=== PATIENT | female | born 1965 | race Caucasian/White ===

== ENCOUNTER → 2016-08-24 | Outpatient (CLI) | payer BC ==
--- NOTE | 2016-08-24 08:57 | MM ---
Reason for exam: follow-up at short interval from prior study. Last mammogram was performed 1 year and 9 months ago. History: Benign excisional biopsy of the left breast, March 2016. Reductions of both breasts, 2012. Took hormonal contraceptives for 15 years. Physical Findings: Nurse Summary: 1cm nodule in the left breast at 8 o'clock (nurse chanell). MG Diagnostic Mammo LT w CAD CC and MLO view(s) were taken of the left breast. Prior study comparison: March 11, 2016, mammogram. November 14, 2014, bilateral MG diagnostic mammo w CAD JOURDAN. January 29, 2014, bilateral MG work up mamm w CAD BILAT. There is no discrete abnormality at BB lower inner quadrant. No significant new findings when compared with previous films. These results were verbally communicated with the patient and result sheet given to the patient on 08/24/16. ASSESSMENT: Incomplete: need additional imaging evaluation, BI-RAD 0 RECOMMENDATION: Ultrasound of the left breast.
--- NOTE | 2016-08-24 09:02 | USB ---
Reason for exam: additional evaluation requested from abnormal screening. History: Benign excisional biopsy of the left breast, March 2016. Reductions of both breasts, 2012. Took hormonal contraceptives for 15 years. US Breast Limited LT Left breast ultrasound demonstrates a 0.60 x 0.80 x 0.70cm solid lesion at 8:30. No clip on mammogram, no mammographic correlation in absence of proof of biopsy, biopsy would be recommended. These results were verbally communicated with the patient and result sheet given to the patient on 08/24/16. ASSESSMENT: Suspicious, BI-RAD 4 RECOMMENDATION: Surgical consultation of the left breast. Manage patient on a clinical basis. Called with mammographic findings and has scheduled an appointment for the patient for 09/01/16 at 12:[address] Mallory. PRELIMINARY REPORT CALLED AND FAXED TO DR. MALLORY ON 06/26/16 AT 300/TP.
== END | disposition home or self-care (01) ==
LOC: RADMAMWWP 07:02
PROVIDERS: ATTEND Surgery
DX: R92.8 Other abnormal and inconclusive findings on diagnostic imaging of breast (principal)
CPT/HCPCS: 76642; G0206

== ENCOUNTER 2017-01-27 16:10 | Day surgery (SDC) | payer BC ==
[2017-01-27 14:51] VITALS: TEMP 97.6
--- NOTE | 2017-01-27 15:21 | IR ---
PICC LINE PLACEMENT: HISTORY: Infection requiring long-term antibiotic therapy PROCEDURE: Ultrasound and fluoroscopic guidance of PICC line placement. COMPLICATIONS: None ANESTHESIA: 1. 1% Lidocaine locally. FINDINGS/TECHNIQUE: The procedure was explained to the patient. The risks, complications, benefits and alternatives were discussed and any questions were answered. Informed consent was obtained. The patient was placed supine on the fluoroscopic table and prepped and draped in the usual sterile fas ion. Utilizing a 21 gauge needle and sonographic and fluoroscopic guidance, access in the vein was achieved and there is placement of a 0.018 guidewire. The vein is patent. A 4-F sheath was placed o elmer the guidewire. The guidewire and dilator were removed and a 4-F. PICC line was placed through th e sheath with the tip at the level of the SVC. The sheath was removed, the catheter was flushed and sutured into position. The patient was stable throughout the procedure and remained stable upon disc harge from the Department of Radiology. The vein puncture was patent under ultrasound. A suresh scale image was obtained to document patency of the vein punctured. All elements of the maximal barrier technique were utilized. FLUOROSCOPY TIME: 0.2 minute, one image submitted. IMPRESSION: Successful PICC line placement under ultrasound and fluoroscopic guidance.
[2017-01-27 15:44] VITALS: BP 140/77; RESP 20
== END 2017-01-27 19:00 | disposition home or self-care (01) ==
LOC: CATHCVL 16:10
PROVIDERS: ATTEND Radiology Diagnostic Radiology
DX: A69.20 Lyme disease, unspecified (principal)
CPT/HCPCS: 36569; 76937; 77001; C1751; C1769

== ENCOUNTER 2017-01-30 18:53 | Emergency (ER) | payer BC ==
--- NOTE | 2017-01-30 21:27 | ED ---
General Adult HPI - General Chief complaint: Skin/Abscess/Foreign Body Stated complaint: Pain post picc line Time Seen by Provider: 01/30/17 20:11 Source: patient Mode of arrival: ambulatory Limitations: no limitations - History of Present Illness Initial comments: 51-year-old female patient presents for evaluation of left arm pain that radiates into her chest. Patient states that she did have a PICC line placed on Monday that has been hurting since then. She states that the pain however is worsening. She states that it is an aching pain. She states it does worsen with movements. She denies any shortness of breath, nausea, vomiting, dizziness , or weakness. She had the PICC line placed as she is being treated for Lyme disease. Started clindamycin. She is supposed to start rifampin in a few days. She denies any swelling to the arm. She states it feels warmer to touch over the area of the PICC line insertion. Patient denies any recent rash, fever , chills, shortness breath, abdominal pain, diarrhea, constipation, back pain, numbness, tingling, dizziness, weakness, hematuria, dysuria, urinary urgency, urinary frequency, headache, visual changes, or any other complaints. - Related Data Home Medications Medication Instructions Recorded Confirmed Cholecalciferol [Vitamin D3] 5,000 unit PO DAILY 01/30/17 01/30/17 Clindamycin Ivpb 1 dose IVPB BID@0700,1900 01/30/17 01/30/17 Fish Oil/Dha/Epa [Fish Oil 1,200 1 cap PO BID 01/30/17 01/30/17 mg Fish Oil] L.acidoph,Paracasei, B.lactis 1 cap PO DAILY 01/30/17 01/30/17 [Probiotic] Multivitamins, Thera [Multivitamin 1 tab PO DAILY 01/30/17 01/30/17 (formulary)] Rifampin Ivpb 1 dose IVPB DIRECTED 01/30/17 01/30/17 Previous Rx's Medication Instructions Recorded Apixaban [Eliquis] 5 mg PO DIRECTED #70 tablet 01/30/17 Allergies Allergy/AdvReac Type Severity Reaction Status Date / Time metoclopramide HCl Allergy Severe Acute Verified 01/30/17 20:13 [From Reglan] Dystonic Reaction aspirin Allergy Rash/Hives Verified 01/30/17 20:13 Review of Systems ROS Statement: Those systems with pertinent positive or pertinent negative responses have been documented in the HPI. ROS Other: All systems not noted in ROS Statement are negative. Past Medical History Past Medical History: Asthma, Neurologic Disorder Additional Past Medical History / Comment(s): Susceptible to dystonia from any medication that is listed as a possible side effect. History of Any Multi-Drug Resistant Organisms: None Reported Past Surgical History: Breast Surgery Additional Past Surgical History / Comment(s): Breast reduction Jan 2013 Past Anesthesia/Blood Transfusion Reactions: Motion Sickness, Postoperative Nausea & Vomiting (PONV) Past Psychological History: No Psychological Hx Reported Smoking Status: Former smoker Past Alcohol Use History: None Reported Past Drug Use History: None Reported General Exam Limitations: no limitations General appearance: alert, in no apparent distress, other (This is a well- developed, well-nourished adult female patient in no acute distress. Vital signs upon presentation her temperature 90.9F, pulse 80, respirations 20, blood pressure 138/80, pulse ox []) Neck exam: Present: normal inspection. Absent: tenderness, meningismus, lymphadenopathy Respiratory exam: Present: normal lung sounds bilaterally. Absent: respiratory distress, wheezes, rales, rhonchi, stridor, chest wall tenderness Cardiovascular Exam: Present: regular rate, normal rhythm, normal heart sounds. Absent: systolic murmur, diastolic murmur, rubs, gallop, clicks GI/Abdominal exam: Present: soft, normal bowel sounds. Absent: distended, tenderness, guarding, rebound, rigid Extremities exam: Present: normal inspection, full ROM, tenderness (Tenderness over the medial aspect of the left upper arm.), normal capillary refill, other ( No evidence of erythema or swelling. Area surrounding PICC line insertion site is warmer to touch however this is the inside of her arm that touches her body. Skin is otherwise pink, warm, and dry. Cap refill less than 3 seconds. Radial pulses are 2+ and equal bilaterally.). Absent: pedal edema, joint swelling, calf tenderness Neurological exam: Present: alert, oriented X3, CN II-XII intact Psychiatric exam: Present: normal affect, normal mood Skin exam: Present: warm, dry, intact, normal color. Absent: rash Course Vital Signs 01/30/17 01/30/17 19:21 23:11 Temperature 99.0 F 98.5 F Pulse Rate 80 68 Respiratory 20 18 Rate Blood Pressure 138/80 141/65 O2 Sat by Pulse 99 97 Oximetry Medical Decision Making - Medical Decision Making 51-year-old female patient presents for evaluation of left arm pain with radiation into her chest. States this started after PICC line placement on Monday. Patient states she is tender over the medial aspect of the arm and feels it is more hot to touch. Physical exam was unremarkable, pulses were intact and 2+. Chest x-ray was obtained and did show appropriate placement of the tip of the PICC line into the superior vena cava. Ultrasound duplex study was performed of the left upper arm and did show positive DVT in the left axillary and left brachial veins. Patient will be started on Eliquis, 10 mg twice daily for the first 7 days then progressing to 5 mg twice daily for the remainder. She was given a 1 month prescription of this. She is instructed to follow-up with the primary care physician. She states she does not currently have a primary care physician however she will be looking for one. She is instructed to return here immediately should she have any problems. She was given extensive education regarding use of anticoagulants and bleeding risk. She is instructed to follow-up with her physician treating her for Lyme disease , this is the ordering physician of the PICC line. She is instructed to return here immediately for any new, worsening, or concerning symptoms. She verbalizes understanding and agrees with this plan. - Radiology Data Radiology results: report reviewed, image reviewed Ultrasound venous Doppler duplex of the left upper extremity was obtained, report was reviewed in its entirety. Impression by Dr. Amador shows left upper extremity positive for DVT in the left axillary vein in the left brachial vein. Two-view x-ray of the chest shows left upper extremity PICC line catheter has normal appearance as tip superimposed over the distal superior vena cava. There is no focal airspace opacity, pleural effusion, or pneumothorax seen. The cardiac silhouette size is within normal limits. Right pericardial. Shaped opacity is more prominent in the present study than on the former study this appears to be epicardial fat on the CT images of 01/09/2013. The osseous structures are intact. Impression by Dr. Amador shows no acute cardiopulmonary process. Disposition Clinical Impression: Deep venous thrombosis of left upper limb Disposition: HOME SELF-CARE Condition: Good Instructions: Deep Venous Thrombosis (ED), Safe Use of Anticoagulants (ED), Blood Thinners (ED) Additional Instructions: Monitor for any signs of bleeding. Monitor stool for bright red bloody, or black stools. Monitor for any blood in her urine. Urine at increased risk of bleeding so if you get cut you must hold pressure for longer periods of time. If you hit your head your brain is at risk for bleeding so please present for evaluation after any injuries. Follow-up with your primary care physician for recheck and further prescriptions of anticoagulation medications. Return here immediately for any new, worsening, or concerning symptoms. Prescriptions: Apixaban [Eliquis] 5 mg PO DIRECTED #70 tablet Referrals: None,Stated [Primary Care Provider] - 1-2 days Time of Disposition: 22:49
--- NOTE | 2017-01-30 21:40 | XR ---
EXAMINATION TYPE: XR chest 2V DATE OF EXAM: 01/30/2017 COMPARISON: 05/22/2013 HISTORY: Left shoulder and forearm pain and numbness post PICC line placement 3 days ago TECHNIQUE: Frontal and lateral views of the chest are obtained. FINDINGS: Left upper extremity PICC line catheter has normal appearance and has tip superimposed ove r the distal SVC. There is no focal air space opacity, pleural effusion, or pneumothorax seen. The cardiac silhouette size is within normal limits. Right pericardial pyramid-shaped opacity is more prominent on the present study than on the former st udy -this appears to be epicardial fat on the CT images of 01/09/2013. The osseous structures are intact. IMPRESSION: No acute cardiopulmonary process.
--- NOTE | 2017-01-30 21:56 | US ---
EXAMINATION TYPE: US venous doppler duplex UE LT DATE OF EXAM: 01/30/2017 COMPARISON: NONE CLINICAL HISTORY: Pain. SIDE PERFORMED: Left Imaging was obtained with grayscale, color doppler, spectral doppler imaging performed of the deep ve ins of the upper extremities. Exam had some limitations due to banding over picc line. There were filling defects with no Doppler flow visualized in the left axillary vein and left brachia l vein. With the exception of these 2 vessels, there was normal flow, compressibility, and vascular w aveforms of the remaining left upper extremity venous structures. IMPRESSION: LEFT UPPER EXTREMITY POSITIVE FOR DVT IN THE LEFT AXILLARY VEIN AND THE LEFT BRACHIAL VEIN.
[2017-01-30] MEDS ORDERED: APIXABAN 5 MG TAB PO STA (22:44)
[2017-01-30 23:13] VITALS: BP 141/65; PULSE 68; RESP 18; TEMP 98.5
== END 2017-01-30 23:19 | disposition home or self-care (01) ==
LOC: EC 18:53
DX: I82.622 Acute embolism and thrombosis of deep veins of left upper extremity (principal); Z87.891 Personal history of nicotine dependence; Z79.899 Other long term (current) drug therapy; Z88.6 Allergy status to analgesic agent; Z88.8 Allergy status to other drugs, medicaments and biological substances
CPT/HCPCS: 71020; 99284

== ENCOUNTER → 2017-02-14 | Outpatient (CLI) | payer BC ==
--- NOTE | 2017-02-14 18:12 | CONS ---
CONSULTATION CHIEF COMPLAINT: Have not slept good since 2010. PRIMARY CARE PHYSICIAN: Dr. Deandre Longoria. This is a 51-year-old female patient who was referred to the sleep center for a sleep evaluation. The patient reports she has not slept good since 2010. She is having difficulty with sleep initiation and maintenance. She goes to bed usually at around 10:00 p.m. It takes this patient less than 30 minutes to fall asleep and she wakes up at 3:00 am and she is unable to go back to sleep. She gets out of bed at around 6:00 a.m. She follows the same sleep schedule on weekends. She wants to sleep longer; however, she cannot and she is not sure of the exact cause of her sleep fragmentation or any factors that are waking her up from sleep. Upon detailed questioning, she denies having any snoring or witnessed apneas. She denies having any choking or gasping sensation at nighttime. Denies having any grinding of the teeth. No anxiety. No depression. No panic attacks. No creepy crawling sensation in the lower extremities or restlessness. No eating disorder. No nocturnal heartburn, chest pain or shortness of breath. She has been diagnosed having Lyme disease and she has been seeing a specialist, Dr. Pascual in [place], [place], where she has been treated with various antibiotics and more recently, she was given a PICC line in her left upper extremity for IV clindamycin treatment which resulted into clotting and pulmonary embolism and the PICC line has been removed and the patient is currently taking Xarelto. This specifically occurred approximately 2 weeks ago. Going back to her insomnia, the patient has tried various treatments to help her initiate and maintain sleep more abundantly; however, the treatments have failed. She has tried Ambien CR, Flexeril, Elavil without any success. Benadryl has made her sleep quality worse. Ativan has sometimes helped; however, the response from Ativan has not been consistent, as the patient would continue to wake up in the middle of the night and feel drowsy for the rest of the day. Her current Walton score is at 5. No history of any head trauma. No history of PTSD. No history of any caffeine abuse. No history of substance abuse. No history of alcoholism. PAST MEDICAL HISTORY: 1. Questionable fibromyalgia. 2. Depression. 3. Anxiety. 4. Lyme disease. 5. Pulmonary embolism secondary to a catheter-related DVT of the left upper extremity. PAST SURGICAL HISTORY: Includes a plantar fascitis of the right foot, a bunionectomy of the left foot, breast reduction surgery, insertion and removal of PICC lines. DRUG ALLERGIES: ASPIRIN AND REGLAN. OUTPATIENT MEDICATION: Includes Xarelto 50 mg p.o. twice a day. SOCIAL HISTORY: The patient is a nonsmoker, does not drink alcohol nor has she had any history of substance abuse. FAMILY HISTORY: Positive for sleep apnea in several family members, including a sister. REVIEW OF SYSTEMS: A 12-point review of system was done. Positive findings are mentioned above in the history of present illness. Otherwise, there is no report of sleep paralysis, hallucinations, cataplexy. She has occasional vivid dreams. No history of any angina. No hyperlipidemia. No history of CVA. Chronic arthritic pain throughout the body. No sinus headaches. No weakness. No emphysema. No history of malignancy or cancer. No liver disease. No nasal polyposis. No thyroid disease. No anemia. PHYSICAL EXAMINATION: VITAL SIGNS: BP is 134/75, pulse 79, respirations 16, temperature is 98.6, saturation is 99% on room air. Weight is 173. Height is 5 feet 1 inch. Walton score is 5. Neck size 15-1/2 and BMI is 32.6. GENERAL APPEARANCE: Calm, comfortable. HEENT: Mallampati class IV. There is no goiter or neck masses. LUNGS: Clear to auscultation. HEART: Sounds are regular rate and rhythm. Normal S1, S2. No S3, S4. No murmurs. ABDOMEN: Soft, nontender. No organomegaly. EXTREMITIES: No edema. No cyanosis or clubbing. IMPRESSION: 1. Chronic insomnia. Could be comorbid insomnia related to fibromyalgia. Other causes of sleep disorders contributing to her insomnia cannot be completely ruled out. I would also suspect a component of sleep misconception. 2. Lyme disease. 3. History of pulmonary embolism related to a catheter infection of the left upper extremity. PLAN: Will proceed with a screening polysomnogram. This will be important to assess the patient's sleep architecture, fragmentation, maintenance, look for any other pathology such as sleep apnea or restless legs and decide on the treatment accordingly. MMODL / IJN: [id number] /
== END ==
LOC: SLEEP 15:33
PROVIDERS: ATTEND Internal Medicine Critical Care Medicine
DX: F51.04 Psychophysiologic insomnia (principal); A69.20 Lyme disease, unspecified; Z86.711 Personal history of pulmonary embolism; Z88.6 Allergy status to analgesic agent; Z88.8 Allergy status to other drugs, medicaments and biological substances; Z79.899 Other long term (current) drug therapy
CPT/HCPCS: 99211